=== PATIENT | female | born 1965 | race Two or more races ===

== ENCOUNTER → 2016-12-07 | Outpatient (CLI) | payer OTHER ==
[~2016-12-07] VITALS: Ht 152.4 cm; Wt 89.4 kg
[~2016-12-07] MED LIST: ASPI-482 PO; ATOR40TA59 PO; CHOL200044 PO; INSU100C SQ; LISI-338 PO; METF-620 PO; REGADENOSON 0.4 MG/5 ML DISP.SYRIN. IV ONE
--- NOTE | 2016-12-07 18:28 | RAD ---
APPROVED REPORT Test Type: Pharmacological Stress Nurse/Tech: Kyle Newman RN Test Indications: chest pain Cardiac History: see ehr Medications: see ehr Medical History: see ehr Resting ECG: SR Resting Heart Rate: 66 bpm Resting Blood Pressure: 126/76mmHg Pretest Chest Pain: None Nurse/Tech Notes Lungs CTA, S1, S2 Consent: The procedure was explained to the patient in lay terms. Informed consent was witnessed. Kodi eout was entered into [employer]. History and Stress Test performed by Carson [facility] [employer]. Details Pharmacologic stress testing was performed using 0.4mg per 5ml of regadenoson given intravenously ove r 7-10 seconds. Stress Symptoms No chest pain or symptoms. POST EXERCISE Reason for Termination: Infusion complete Max HR: 110 bpm Max Blood Pressure: 137/73mmHg Blood Pressure response to exercise: Normal blood pressure response during stress. Chest Pain: No. Arrhythmia: No. ST Change: No. INTERPRETATION Stress EKG Conclusion: No acute changes were noted. Imaging Protocol IMAGE PROTOCOL: Rest Tc-99m/stress Tc-99m 1 day Rest: Stress: Viability: Radiopharm.Tc99m IstflfqvqJm80r Sestamibi Kopl80uTh 32mCi Duration 15min. 10min. Img Date 12/07/2016 12/07/2016 Inj-Img [id number]. 60min. Rest Admin Site:IV - Left AntecubitalAdministrator:ROLDAN Feliciano, ARRT (R)(N) Stress Admin Site: IV - Left AntecubitalAdministrator: Amrita Valdez, RT (R)(N) STRESS DATA End Diast. Vol.69.0mlAv. Heart Rate66.0bpm End Syst. Vol.17.0mlCO Index BSA0.0L/min Myocardial Cuzw758.0gEject. Ugchgpwt78.0% Stress Rates Pk. Fill Rate3.42EDV/secLVtime Pk. Fill 243.14msec Pk. Empty Rate3.77ESV/secLVtime Pk. Gkjub231.18msec 08/09 Pk. Fill1.06EDV/sec Stress Scores Regional WT0.00Summed WT4.00 Regional WM0.00Summed WM0.00 LV Perf. Quant 17 Seg. SSS0.00 17 Seg. SRS0.00 17 Seg. SDS0.00 Stress Defect Extent (% LAD)0.00Rest Defect Extent (% LAD)0.00Rev. Defect Extent (% LAD)0.00 Stress Defect Extent (% LCX) 0.00Rest Defect Extent (% LCX)0.00Rev. Defect Extent (% LCX)0.00 Stress Defect Extent (% RCA)0.00Rest Defect Extent (% RCA)0.00Rev. Defect Extent (% RCA)0.00 Stress Defect Extent (% MARILU)0.00Rest Defect Extent (% MARILU)0.00Rev. Defect Extent (% MARILU)0.00 Conclusion 1. No electrocardiographic changes suggestive of myocardial ischemia with pharmocological stress. 2. No perfusion defects suggest myocardial ischemia or scar. 3. Normal wall motion and wall thickening with an and ejection fraction of 75%. 4. Scan indicates low risk for future cardiac events.
--- NOTE | 2016-12-07 18:35 | CARD ---
APPROVED REPORT EXAM: Two-dimensional and M-mode echocardiogram with Doppler and color Doppler. Other Information Quality : GoodHR: 67bpm Rhythm : NSR INDICATION Chest Pain RISK FACTORS Obesity 2D DIMENSIONS RVDd2.5 (2.9-3.5cm)Left Atrium(2D)3.7 (1.6-4.0cm) IVSd0.9 (0.7-1.1cm)Aortic Root(2D)2.8 (2.0-3.7cm) LVDd4.6 (3.9-5.9cm)LVOT Diameter2.2 (1.8-2.4cm) PWd1.0 (0.7-1.1cm)LVDs3.0 (2.5-4.0cm) FS (%) 34.8 %SV63.4 ml LVEF(%)64.1 (>50%) Aortic Valve AoV Peak Ej.161.5cm/sAoV VTI37.4cm AO Peak GR.10.4mmHgLVOT Peak Ej.108.5cm/s AO Mean GR.5mmHgAVA (VMAX)2.65cm2 Mitral Valve MV E Sqzucyfr21.3cm/sMV E Peak Gr.4mmHg MV DECEL [id number] A Rfzytkfn15.3cm/s MV E Mean Gr.2mmHgE/A Ratio1.3 MV A [id number] Pulmonary Valve PV Peak Lhzzybxv43.3cm/s Pulmonary Vein S1 Bikjeytp07.4cm/sD2 Laokzrij22.0cm/s PVa [id number] LEFT VENTRICLE The left ventricle is normal size. There is normal left ventricular wall thickness. The left ventricu lar systolic function is normal and the ejection fraction is within normal range. The Ejection Fracti on is 60-65%. The left ventricular diastolic function and filling is normal for age. RIGHT VENTRICLE The right ventricle is normal size. There is normal right ventricular wall thickness. The right ventr icular systolic function is normal. ATRIA The left atrium size is normal. The right atrium size is normal. The interatrial septum is intact wit h no evidence for an atrial septal defect or patent foramen ovale as noted on 2-D or Doppler imaging. AORTIC VALVE The aortic valve is normal in structure and function. Doppler and Color Flow revealed no significant aortic regurgitation. There is no significant aortic valvular stenosis. MITRAL VALVE Mitral annular calcification is mild. The mitral valve leaflets are thickened. There is no evidence o f mitral valve prolapse. There is no mitral valve stenosis. Doppler and Color Flow revealed no mitral valve regurgitation noted. TRICUSPID VALVE The tricuspid valve is normal in structure and function. Doppler and Color Flow revealed no tricuspid valve regurgitation noted. Unable to determine pulmonary artery pressure at exam time. PULMONIC VALVE Doppler and Color Flow revealed no pulmonic valvular regurgitation. There is no pulmonic valvular tyra nosis. GREAT VESSELS The aortic root is normal in size. The ascending aorta is normal in size. The pulmonary artery is nor mal. The IVC is normal in size and collapses >50% with inspiration. PERICARDIAL EFFUSION There is no evidence of significant pericardial effusion. Critical Notification Critical Value: No <Conclusion> The left ventricle is normal size. There is normal left ventricular wall thickness. The left ventricular systolic function is normal and the ejection fraction is within normal range. The Ejection Fraction is 60-65%. The left ventricular diastolic function and filling is normal for age. There is no evidence of significant pericardial effusion. Mitral annular calcification is mild. The mitral valve leaflets are thickened. There is no evidence of mitral valve prolapse. There is no mitral valve stenosis. Doppler and Color Flow revealed no mitral valve regurgitation noted. Left atrium is of a normal size. Aortic valve is tricuspid the valve leaflets are not thickened There is no aortic stenosis or regurgitation. Right ventricle is of a normal size with normal systolic function. There is no significant tricuspid regurgitation to be able to evaluate the right ventricular systolic systolic pressure. The inferior vena cava is of a normal size with normal inspiratory collapse. The pulmonic valve is normal. IMPRESSION: NORMAL ECHOCARDIOGRAM
== END | disposition home or self-care (01) ==
LOC: NM 09:24
PROVIDERS: ATTEND Specialist
DX: R07.9 Chest pain, unspecified (principal)
CPT/HCPCS: 78452; 93017; 93306; 96374; 96375; 96376; A9500; J2785